=== PATIENT | female | born 1990 | race Caucasian/White ===

== ENCOUNTER → 2016-08-14 | Outpatient (CLI) | payer MEDICAID ==
[~2016-08-14] MED LIST: Z.0.NO CURRENT MEDS
== END ==
LOC: HPND 11:00
PROVIDERS: ATTEND Obstetrics & Gynecology
DX: O99.322 Drug use complicating pregnancy, second trimester (principal)
CPT/HCPCS: 76811; 76825; 76827; 93325

== ENCOUNTER → 2016-10-03 | Outpatient (CLI) | payer MEDICAID | LOC: HPND 10:43 | PROVIDERS: ATTEND Obstetrics & Gynecology | DX: O99.322 Drug use complicating pregnancy, second trimester (principal) | CPT/HCPCS: 76816 ==